=== PATIENT | male | born 1930 | race Caucasian/White ===

== ENCOUNTER 2017-03-06 15:18 | Emergency (ER) | payer MEDICARE, OTHER ==
[~2017-03-06] VITALS: Ht 175.3 cm; Wt 59.0 kg
[~2017-03-06 15:18] MED LIST: CLOBETASOL PROP15 G1 TOP; VITAMIN D3400 UNIT PO; XARELTO10 MG PO
--- NOTE | 2017-03-06 17:01 | Diagnostic Imaging Report ---
PROCEDURE:X-RAY RIGHT WRIST, COMPLETE COMPARISON:None. INDICATIONS:FALL FINDINGS: There are no fractures, dislocations, lytic or blastic lesions. Moderate degenerative changes at the first carpometacarpal joint. The bones are well-mineralized. The soft-tissues are unremarkable. CONCLUSION: No fractures of the right wrist. Dictated by: Anam Paige M.D. on 03/06/2017 at 17:09 Electronically approved by: Anam Paige M.D. on 03/06/2017 at 17:09
[2017-03-06] MEDS ORDERED: TRAMADOL HCL 50 MG TAB PO ONE (20:45)
--- NOTE | 2017-03-06 21:37 | Diagnostic Imaging Report ---
EXAMINATION: Head CT without contrast. HISTORY:Status post fall. COMPARISON:CT brain from 12/16/2016. TECHNIQUE: Multidetector axial images were obtained from the foramen magnum to the vertex without contrast. The images were reconstructed using brain and bone algorithms. Thin section brain images were reformatted into coronal and sagittal planes. Intravenous contrast: None IMAGE QUALITY: Acceptable. FINDINGS: Skull/scalp: No abnormality. Parenchyma: Nonspecific few, scattered supratentorial white matter patchy hypodensity are likely related to small vessel ischemic changes. No acute hemorrhage, mass or acute major vascular territorial infarct. Arteries: Mild atherosclerotic calcification in bilateral carotid siphon. Dural sinuses: No abnormal density suggestive of thrombosis. Ventricles: Mild compensated dilatation due to volume loss. No hydrocephalus. Extra-axial spaces: No abnormal density. Brain volume: Moderate generalized age-related cerebral volume loss. Craniocervical junction: No mass, Chiari malformation, or basilar invagination. Sella: No mass. Paranasal/mastoid sinuses: Imaged portions unremarkable. IMPRESSION: No acute intracranial abnormality. No change since CT brain from 12/16/2016. Mild supratentorial white matter microvascular ischemic changes. Generalized age-related cerebral volume loss. Signed by: Dr. Fina Yarbrough M.D. on 03/06/2017 9:34 PM
--- NOTE | 2017-03-06 21:43 | Diagnostic Imaging Report ---
History:Status post fall. Comparison studies: None Technique: Axial images were obtained through the maxillofacial region. Coronal and sagittal images reconstructed from the axial data. Intravenous contrast: None Findings: Suboptimal evaluation due to dental amalgam artifacts. Soft tissues: Mild soft tissue edema/hematoma in the mid perimandibular region and lower lip/chin region. No associated soft tissue emphysema or radiopaque foreign bodies. Bones: Suboptimal evaluation due to dental amalgam artifact, despite the limitation no acute fracture/dislocation. Orbits: Globes: Intact Extra or intraconal abnormalities: None. Paranasal sinuses: Small polyp/retention cyst in the roof of right maxillary sinus and floor of left maxillary sinus. Incidental finding: Moderate degenerative changes in the anterior atlantodental dental joint with a partially calcified soft tissue prominence posterior to the dens at level C2. IMPRESSION: 1. Mild soft tissue edema/hematoma in the perimandibular region, lower lip/chin. 2. Suboptimal evaluation due to dental amalgam artifact, despite the limitation no acute fracture. Signed by: Dr. Fina Yarbrough M.D. on 03/06/2017 9:39 PM
[2017-03-06 21:52] VITALS: BP 136/71
== END 2017-03-06 21:56 | disposition home or self-care (01) ==
LOC: ER 15:18
DX: S00.83XA Contusion of other part of head, initial encounter (principal)
CPT/HCPCS: 70450; 70486; 99283

== ENCOUNTER 2017-08-02 02:21 | Inpatient (IN) | payer MEDICARE, OTHER ==
[~2017-08-02] VITALS: Ht 175.3 cm; Wt 59.0 kg
--- OUTSIDE RECORDS SUMMARY | 2017-08-02 02:24 | XMS REPORT ---
Author Author [facility] Address Unknown Phone Unavailable Care Team Providers Care [employer] Name Role Phone ERNESTO DURAN Unavailable Unavailable DHARMESH GARCIA Unavailable Unavailable Problems This patient has no known problems. Allergies, Adverse Reactions, Alerts This patient has no known allergies or adverse reactions. Medications This patient has no known medications. Results Test Description Test Time Test Comments Text Results Atomic Results Result Comments CT BRAIN WO [place] [address] Patient Name: ROXANE RICHARDSON MR #: [id number] : 1930 Age/Sex: 86/M Req # : [id number] Adm Physician: Ordered by: MAURICIO BLACKBURN Report #: [id number] Location: ER Room/Bed: Procedure: [id number] CT/CT BRAIN WO Exam Date: 03/06/17 Exam Time: 2052 REPORT STATUS: Signed EXAMINATION: Head CT without contrast. HISTORY:Status post fall. COMPARISON:CT brain from 12/16/2016. TECHNIQUE: Multidetector axial images were obtained from the foramen magnum to the vertex without contrast. The images were reconstructed using brain and bone algorithms. Thin section brain images were reformatted into coronal and sagittal planes. Intravenous contrast: None IMAGE QUALITY: Acceptable. FINDINGS: Skull/scalp: No abnormality. Parenchyma: Nonspecific few, scattered supratentorial white matter patchy hypodensity are likely related to small vessel ischemic changes. No acute hemorrhage, mass or acute major vascular territorial infarct. Arteries: Mild atherosclerotic calcification in bilateral carotid siphon. Dural sinuses: No abnormal density suggestive of thrombosis. Ventricles: Mild compensated dilatation due to volume loss. No hydrocephalus. Extra-axial spaces: No abnormal density. Brain volume: Moderate generalized age-related cerebral volume loss. Craniocervical junction: No mass, Chiari malformation, or basilar invagination. Sella: No mass. Paranasal/ mastoid sinuses: Imaged portions unremarkable. IMPRESSION: No acute intracranial abnormality. No change since CT brain from 12/16/2016. Mild supratentorial white matter microvascular ischemic changes. Generalized age -related cerebral volume loss. Signed by: Dr. Fina Yarbrough M.D. on 2017 9:34 PM Dictated By: FINA YARBROUGH MD 33 Transcribed By: RAFY on 03/06/172133 COPY TO: MAURICIO BLACKBURN CT MAXIO FAC/PARANAS WO [place] [address] Patient Name: ROXANE RICHARDSON MR #: [id number] : 1930 Age/Sex: 86/M Req #: [id number] Adm Physician: Ordered by: MAURICIO BLACKBURN Report #: [id number] Location: ER Room/Bed: _ Procedure: [id number] CT/CT MAXIO FAC/PARANAS WO Exam Date: 03/06/17 Exam Time: 2052 REPORT STATUS: Signed History: Status post fall. Comparison studies: None Technique: Axial images were obtained through the maxillofacial region. Coronal and sagittal images reconstructed from the axial data. Intravenous contrast: None Findings: Suboptimal evaluation due to dental amalgam artifacts. Soft tissues: Mild soft tissue edema/hematoma in the mid perimandibular region and lower lip /chin region. No associated soft tissue emphysema or radiopaque foreign bodies. Bones: Suboptimal evaluation due to dental amalgam artifact, despite the limitation no acute fracture/dislocation. Orbits: Globes: Intact Extra or intraconal abnormalities: None. Paranasal sinuses: Small polyp/retention cyst in the roof of right maxillary sinus and floor of left maxillary sinus. Incidental finding: Moderate degenerative changes in the anterior atlantodental dental joint with a partially calcified soft tissue prominence posterior to the dens at level C2. IMPRESSION: 1. Mild soft tissue edema/hematoma in the perimandibular region, lower lip/chin. 2. Suboptimal evaluation due to dental amalgam artifact, despite the limitation no acute fracture. Signed by: Dr. Fina Yarbrough M.D. on 2017 9:39 PM Dictated By: FINA YARBROUGH MD 38 Transcribed By: RAFY on 03/06/172138 COPY TO: MAURICIO BLACKBURN WRIST COMPLETE RIGHT [place] [address] Patient Name: ROXANE RICHARDSON MR #: [id number] : 1930 Age/Sex: 86/M Req #: [id number] Adm Physician: Ordered by: MAURICIO BLACKBURN Report #: [id number] Location: ER Room/Bed: _ Procedure: [id number] DX/WRIST COMPLETE RIGHT Exam Date: 03/06/17 Exam Time: 1645 REPORT STATUS: Signed PROCEDURE: X -RAY RIGHT WRIST, COMPLETE COMPARISON: None. INDICATIONS: FALL FINDINGS: There are no fractures, dislocations, lytic or blastic lesions. Moderate degenerative changes at the first carpometacarpal joint. The bones are well-mineralized. The soft-tissues are unremarkable. CONCLUSION: No fractures of the right wrist. Dictated by: Claudia Lanier M.D. on 03/06/2017 at 17:09 Electronically approved by: Claudia Lanier M.D. on 03/06/2017 at 17:09 Dictated By: CLAUDIA LANIER MD 08 Transcribed By: VASYL on 03/06/171708 COPY TO: MAURICIO BLACKBURN CT BRAIN WO [place] [address] Patient Name: ROXANE RICHARDSON MR #: [id number] : 1930 Age/Sex: 86/M Req # : [id number] Adm Physician: Ordered by: DHARMESH GARCIA MD Report #: [id number] Location: ER Room/Bed: Procedure: [id number] CT/CT BRAIN WO Exam Date: 12/16/16 Exam Time: 2049 REPORT STATUS: Signed Examination: CT BRAIN WITHOUT CONTRAST History:Dizziness. Comparison studies:None Technique: Axial images were obtained from the skull base to the vertex. Coronal and sagittal images reconstructed from the axial data. Intravenous contrast: None Findings: Scalp: No abnormalities. Bones: No fractures, blastic or lytic lesions. Brain sulci: Mild volume loss for age. Ventricles: No hydrocephalus. Extra-axial space: No abnormalities. Parenchyma: There are mild confluent areas of hypoattenuation in the periventricular and subcortical and pontine white matter, nonspecific. No masses, hemorrhage, or acute or chronic cortical based vascular insults. Sellar/suprasellar region: No abnormalities. Craniocervical junction: Patent foramen magnum. No Chiari one malformation. Incidental findings: Atherosclerotic calcification of the cavernous and supraclinoid internal carotid arteries. Impression: 1. No acute intracranial abnormalities. 2. Mild chronic microvascular ischemic change and volume loss. Signed by: Dr. Melba Garcia M.D. on 12/16/2016 9:24 PM Dictated By: MELBA STEWART MD 23 Transcribed By: RAFY on 12/16/162123 COPY TO: DHARMESH GARCIA MD CHEST SINGLE (PORTABLE) [place] [address] Patient Name: ROXANE RICHARDSON MR #: [id number] : 1930 Age/Sex: 86/M Req #: [id number] Adm Physician: Ordered by: DHARMESH GARCIA MD Report #: [id number] Location: ER Room/Bed: Procedure: [id number] DX/CHEST SINGLE (PORTABLE) Exam Date: 12/16/16 Exam Time: 2054 REPORT STATUS: Signed CHEST SINGLE ( PORTABLE), 12/16/2016 7:43 PM Technique: CHEST SINGLE (PORTABLE) Comparison: 06/07/2016 Clinical history: Dizziness, lung cancer Findings: See Impression Impression: Lung apices are partially excluded. 1. Stable moderately enlarged cardiac silhouette and fullness of the AP window ( adenopathy) 2. Underlying emphysema with decreased size of left upper lobe mass (approximately 4.2 cm, prior 4.9 cm). 3. No new or acute abnormality. Signed by: Dr Mat Rascon MD on 12/16/2016 9:28 PM Dictated By: MAT RASCON MD 27 Transcribed By: RAFY on 12/16/162127 COPY TO: DHARMESH GARCIA MD
--- OUTSIDE RECORDS SUMMARY | 2017-08-02 02:24 | XMS REPORT | Clinical Summary ---
Author Author [facility] Organization [facility] Address Unknown Phone Unavailable Care Team Providers Care Installer Name Role Phone Prem Storey MD PCP Allergies Active Allergy Reactions Severity Noted Date Comments Retapamulin Other (See Comments) 07/23/2016 Unknown Warfarin Other (See Comments) 07/23/2016 Bruising on arms Duloxetine Other (See Comments) 07/23/2016 Unknown Penicillins Rash Low 07/23/2016 Current Medications Prescription Sig. Disp. Refills Start End Date Status Date XARELTO 15 mg tablet Take 15 mg by mouth 6 06/24/19 Active daily. 17 cholecalciferol, vitamin Take 2,000 Units by mouth Active D3, (VITAMIN D3) 2,000 daily. unit capsule capsule PROAIR HFA 90 Inhale 1 puff 2 (two) 08/21/19 Active mcg/actuation inhaler times a day as needed. 17 tiotropium (SPIRIVA) 18 Place 1 puff (1 capsule 30 capsule 0 07/09/19 08/08/19 Active mcg per inhalation total) into inhaler and 18 18 capsule inhale once daily for 30 days. fluticasone-vilanterol Inhale 1 inhalations once 30 each 0 07/09/19 08/08/19 Active (BREO ELLIPTA) 200-25 daily for 30 days. 18 18 mcg/dose blister with device powder for inhalation diltiazem CD (CardIZEM Take 1 capsule (120 mg 30 capsule 0 07/17/19 08/16/19 Active CD) 120 MG 24 hr capsule total) by mouth daily for 18 18 30 days. predniSONE (DELTASONE) 20 Take 1 tablet (20 mg 7 tablet 0 07/08/19 07/17/19 Discontin mg tablet total) by mouth daily for 18 18 ued 7 days. traMADol (ULTRAM) 50 mg Take 1 tablet (50 mg 15 tablet 0 07/08/19 / Discontin tablet total) by mouth every 8 18 18 ued (eight) hours as needed for moderate pain for up to 5 days. diltiazem (CardIZEM) 30 Take 1 tablet (30 mg 90 tablet 0 07/16/19 /15/20 Discontin MG tablet total) by mouth every 8 18 18 ued (eight) hours for 30 days. Active Problems Problem Noted Date Shortness of breath 07/13/2017 Atrial fibrillation 07/04/2017 COPD (chronic obstructive pulmonary disease) 07/04/2017 Lung cancer 07/04/2017 Moderate protein-calorie malnutrition 07/04/2017 Pneumothorax 07/03/2017 Encounters Date Type Specialty Care Team Description 08/01/2017 [facility] Radiology Cy Thomas III, Malignant neoplasm of Encounter upper lobe bronchus, left 07/25/2017 [facility] Radiology Cy Thomas III, Encounter 07/25/2017 [facility] Radiology Cy Thomas III, Canceled ( Scheduling Encounter MD Error) 07/25/2017 Ancillary Radiology Cy Thomas III, Orders 07/25/2017 Ancillary Radiology Cy Thomas III, Orders 07/25/2017 Ancillary Radiology Cy Thomas III, Orders 07/19/2017 Transcribe Access Cy Thomas III, Malignant neoplasm of Orders upper lobe bronchus, left (Primary Dx) 07/13/2017 Emergency General Internal Medicine Floyd Stanley [facility] 07/16/2017 Malignant neoplasm of lung, unspecified laterality, unspecified part of lung; Atrial fibrillation, unspecified type; On continuous oral anticoagulation; Chronic atrial fibrillation 07/07/2017 Patient Quality Ashley Nichole, MARIANN Outreach 07/03/2017 [facility] General Internal Medicine Cy Thomas III, Postprocedural - Encounter pneumothorax (Primary 07/07/2017 Slade Leyva, Dx); 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 07/03/2017 [facility] Radiology Ronan Engel Malignant neoplasm of Encounter III, bronchus of left upper lobe 07/03/2017 [facility] Radiology Cy Thomas III, Malignant neoplasm of Encounter MD bronchus of left upper lobe 07/03/2017 Orders Only General Internal Medicine Tigrevandana SladeDO 06/25/2017 Telephone Access Cy Thomas III, MD 06/21/2017 Transcribe Access Cy Thomas III, Malignant neoplasm of Orders MD bronchus of left upper lobe (Primary Dx) 06/05/2017 Lab Lab Cyndee Gregorio MD 04/03/2017 Hospital Radiology Mark Trotter MD Malignant neoplasm of Encounter overlapping sites of left lung 04/03/2017 Ancillary Access Mark Trotter MD Malignant neoplasm of Orders overlapping sites of left lung 04/02/2017 Telephone Radiology James Zurita 03/26/2017 Transcribe Access Mark Trotter MD Malignant neoplasm of Orders overlapping sites of left lung (Primary Dx) 09/17/2016 Telephone Cardiothoracic Surgery Brittni Savage MA 09/06/2016 [facility] Pulmonology Fabio Goodrich MD Malignant neoplasm of Encounter upper lobe of left lung; SOB (shortness of breath) 09/06/2016 [facility] Radiology Fabio Goodrich MD Malignant neoplasm of Encounter upper lobe of left lung 08/31/2016 Lab Lab Fabio Goodrich MD 08/31/2016 [facility] Cardiothoracic Surgery Fabio Goodrich MD Encounter 08/31/2016 Anesthesia Cardiothoracic Surgery [facility] Event 08/31/2016 Procedure Pass Cardiothoracic Surgery 08/31/2016 Surgery Cardiothoracic Surgery Fabio Goodrich MD FLEXIBLE BRONCHOSCOPY, ENDOBRONCHIAL ULTRASOUND WITH BIOPSY 08/30/2016 Telephone Cardiothoracic Surgery Carey Hernadez NP 08/27/2016 Procedure Pass Radiology 08/27/2016 Telephone Cardiothoracic Surgery Carey Hernadez NP 08/27/2016 Orders Only Cardiothoracic Surgery Carey Hernadez, Malignant neoplasm of HARDBOARD GRINDER upper lobe of left lung (Primary Dx); SOB (shortness of breath) 08/24/2016 Telephone Cardiothoracic Surgery Carey Hernadez NP 08/23/2016 [facility] Radiology Fabio Goodrich MD Encounter 08/23/2016 Office Visit Cardiothoracic Surgery Fabio Goodrich MD Malignant neoplasm of upper lobe of left lung (Primary Dx); Pre-op testing; Chronic atrial fibrillation 08/23/2016 Orders Only Cardiothoracic Surgery Fabio Goodrich MD 08/23/2016 Ancillary Radiology Fabio Goodrich MD Orders 08/23/2016 Orders Only Cardiothoracic Surgery Provider, MD Ivy after 08/01/2016 Family History Medical History Relation Name Comments Prostate cancer Father Relation Name Status Comments Father Social History Tobacco Use Types Packs/Day Years Used Date Former Smoker Cigarettes 0.25 60 Quit: 03/13/2017 Smokeless Tobacco: Never Used Tobacco Cessation: Counseling Given: Yes Comments: 1-2 per day Alcohol Use Drinks/Week oz/Week Comments No Sex Assigned at Date Recorded Not on file Last Filed Vital Signs Vital Sign Reading Time Taken Blood Pressure 133/66 07/16/2017 1:49 PM CDT Pulse 87 07/16/2017 1:49 PM CDT Temperature 36.2 C (97.2 F) 07/16/2017 7:24 AM CDT Respiratory Rate 22 07/16/2017 1:51 PM CDT Oxygen Saturation 94% 07/16/2017 1:49 PM CDT Inhaled Oxygen - - Concentration Weight 57.6 kg (127 lb) 07/15/2017 6:00 AM CDT Height 175.3 cm (5' 9") 07/13/2017 1:43 PM CDT Body Mass Index 18.75 07/15/2017 6:00 AM CDT Plan of Treatment Health Maintenance Due Date Last Done Comments SHINGRIX VACCINE (#1) 10/24/1979 ZOSTER VACCINE 1989 PNEUMOCOCCAL 1994 POLYSACCHARIDE VACCINE AGE 65 AND OVER PNEUMOCOCCAL-13 1994 INFLUENZA VACCINE 10/02/2017 12/03/2015 Procedures Procedure Name Priority Date/Time Associated Diagnosis Comments ECHOCARDIOGRAM WITH Routine 07/15/2017 Results for this AGITATED SALINE (48406) 9:50 AM CDT procedure are in the results section. ANESTHESIA INTUBATION Routine 08/31/2016 Results for this 8:04 AM CDT procedure are in the results section. after 08/01/2016 Results * PET/CT Skull Base To Mid Thigh (08/01/2017 4:20 PM) Specimen Performing Laboratory [address] [address] Narrative PROCEDURE:PET CT SKULL BASE TO MID THIGH INDICATION:Restaging lung cancer, subsequent treatment strategy. TECHNIQUE:Blood glucose measured at the time of injection was 103 mg/dL. The patient was then injected with 12.2 mCi of 18F-FDG, IV.Approximately one hour later, PET images were acquired from the skull base to the mid thighs. Corresponding, low dose, non-contrast CT scanning was performed as part of the attenuation correction process.Automated dose exposure control was utilized. COMPARISON:Outside PET/CT scan dated 05/10/2017. FINDINGS: Head and neck:No suspicious brain uptake.Normal uptake is seen in the visualized sinuses, orbits, nasopharynx, and oropharynx.Uptake by the larynx is normal.No suspicious neck lymph node uptake.Persistent uptake within a right parotid nodule demonstrates an SUV of 7.4.It previously measured 10.6. Chest:No abnormal mediastinal, hilar, or axillary lymph node uptake. Infiltrative changes in the left upper lung are progressed from prior, with diffuse uptake.The maximum SUV on today's study is 5.8.This is similar to prior.Opacity currently measures proximally 6 cm, increased from 4.4 cm.No suspicious uptake in the right lung. Abdomen:Normal uptake is seen in the stomach, spleen, pancreas, liver, and adrenal glands.No abnormal retroperitoneal or mesenteric lymph node uptake. Left renal cyst.No suspicious bowel uptake. Pelvis:Physiologic bowel uptake.No abnormal pelvic sidewall or inguinal lymph node uptake. Review of the osseous structures demonstrates no suspicious uptake. IMPRESSION: 1.Although findings in the left upper lung are progressed from prior, the appearance is suggestive of worsening postradiation pneumonitis. 2.No new uptake is seen to suggest metastatic disease.Stable uptake within a right parotid nodule probably reflects a benign lesion. [facility]-[id number] Procedure Note [facility], Radiology Results - 08/01/2017 5:24 PM CDT PROCEDURE: PET CT SKULL BASE TO MID THIGH INDICATION: Restaging lung cancer, subsequent treatment strategy. TECHNIQUE: Blood glucose measured at the time of injection was 103 mg/dL. The patient was then injected with 12.2 mCi of 18F-FDG, IV. Approximately one hour later, PET images were acquired from the skull base to the mid thighs. Corresponding, low dose, non-contrast CT scanning was performed as part of the attenuation correction process. Automated dose exposure control was utilized. COMPARISON: Outside PET/CT scan dated 05/10/2017. FINDINGS: Head and neck: No suspicious brain uptake. Normal uptake is seen in the visualized sinuses, orbits, nasopharynx, and oropharynx. Uptake by the larynx is normal. No suspicious neck lymph node uptake. Persistent uptake within a right parotid nodule demonstrates an SUV of 7.4. It previously measured 10.6. Chest: No abnormal mediastinal, hilar, or axillary lymph node uptake. Infiltrative changes in the left upper lung are progressed from prior, with diffuse uptake. The maximum SUV on today's study is 5.8. This is similar to prior. Opacity currently measures proximally 6 cm, increased from 4.4 cm. No suspicious uptake in the right lung. Abdomen: Normal uptake is seen in the stomach, spleen, pancreas, liver, and adrenal glands. No abnormal retroperitoneal or mesenteric lymph node uptake. Left renal cyst. No suspicious bowel uptake. Pelvis: Physiologic bowel uptake. No abnormal pelvic sidewall or inguinal lymph node uptake. Review of the osseous structures demonstrates no suspicious uptake. IMPRESSION: 1. Although findings in the left upper lung are progressed from prior, the appearance is suggestive of worsening postradiation pneumonitis. 2. No new uptake is seen to suggest metastatic disease. Stable uptake within a right parotid nodule probably reflects a benign lesion. [facility]-[id number] * CBC hemogram (08/01/2017 4:16 PM) Component Value Ref Range WBC 9.59 4.50 - 11.00 k/uL RBC 3.51 (L) 4.40 - 6.00 m/uL HGB 11.8 (L) 14.0 - 18.0 g/dL HCT 34.7 (L) 41.0 - 51.0 % MCV 98.9 82.0 - 100.0 fL MCH 33.6 27.0 - 34.0 pg MCHC 34.0 31.0 - 37.0 g/dL RDW - SD 59.0 (H) 37.0 - 55.0 fL MPV 9.4 8.8 - 13.2 fL Platelet count 51 (L) 150 - 400 k/uL Nucleated RBC 0.00 /100 WBC Specimen Performing Laboratory Blood [facility] DEPARTMENT OF PATHOLOGY AND GENOMIC MEDICINE [address] [place] [address] * PET/CT Whole Body External Study (07/25/2017 2:16 PM) Only the most recent of 2 results within the time period is included. Specimen Performing Laboratory [facility] [address] [place] [address] Narrative This exam was not acquired at a [facility] facility and has not been interpreted by a [facility] Provider.The exam was imported into our imaging system for comparisons purposes. * Magnesium level (07/16/2017 10:51 AM) Component Value Ref Range Magnesium 1.9 1.6 - 2.4 mg/dL Specimen Performing Laboratory Plasma specimen [facility] DEPARTMENT OF PATHOLOGY AND GENOMIC MEDICINE [address] [place] [address] * Echocardiogram complete w contrast and 3D if needed (07/15/2017 9:50 AM) Component Value Ref Range Velocity Ratio (V1/V2) 0.46 m/s IVS,d 1.24 (A) 0.6 - 1.2 cm EF 64.43 % LA volume 196.0 cm3 LVPWD,d 1.20 cm AoV Mean PG 3.53 mmHg AV LVOT peak gradient 2.04 mmHg MV valve area p 1/2 3.38 cm2 method LVOT Diam,S 2.44 cm LVOT area 4.67 cm2 LVOT Vmax 0.71 m/s LVOT VTI 0.09 m AoV Peak PG 9.45 mmHg MV stenosis pressure 1/2 65.01 ms time LV Vol,s A2C 31.12 mL LV Vol,d A2C 117.29 mL AoV Area, Vmax 2.14 cm2 AoV Area, VTI 2.61 cm2 AoV Vmax 1.54 m/s LA Area d A4C 200 cm2 LV,d 4.72 cm LV,s 3.06 cm LV Vol,d A4C 119.26 ml LV Vol,s A4C 45.94 ml TR Vpeak 3.89 mm/s RA pressure 5.00 mmHg TR pk grad 37.43 mmHg MR peak grad 83.11 mmHg RVSP 48.50 mmHg AR Press Half Time 954.79 ms LV SYS VOL 36.75 ml LV OCONNOR VOL 103.32 ml LA diam s 5.30 cm LV SV Teich 2D 66.57 ml LVOT SI 24.72 ml/m2 AoV Cusp sep 1.81 Aortic Root 3.60 cm AoV Vmn 0.85 AR slope 2.59 Ar Vmax 4.00 IVS s 2D 1.60 LA Ao Ratio Mmode 1.46 IL End Oconnor Grad 9.69 IL End Diat Nii 1.56 AR maxPG 64.13 D E excurs 2.20 E f slope 0.07 E prime lat 0.16 E marvin sept 0.15 PV acc T slope 3.40 IVC diam 24.77 cm PV AT 100.35 msec AoV VTI 0.16 m LV EF,A2C 73.47 % LV EF,A4C 61.48 % LV EF,BP 68.17 % [place],d A2C 8.24 cm [place],d A4C 8.35 cm [place],s A2C 7.55 cm [place],s A4C 7.48 cm LV SV,A2C 86.18 % LV SV,A4C 73.31 % LV Vol,d BP 118.86 ml LV Vol,s BP 37.84 nl MR Vmax 4.68 m/s LVOT Vmn 0.41 Pt Size 175.26 Pt Wt 57.61 LVOT mean grad 0.84 mmHg AR DT 1,546.34 msec AR pk grad 53.53 mmHg LVPW s PLAX 1.78 cm Specimen Performing Laboratory [facility] [address] [place] [address] Narrative Bubble study performed. The left ventricle chamber size is normal. There is mild left ventricular concentric hypertrophy. Left atrium size is severely dilated. Right atrium size moderately dilated. No pericardial effusion The mitral valve appears myxomatous. There is moderate mitral valve regurgitation. The jet in the mitral valve is posterior-directed. Trace aortic regurgitation. Moderate tricuspid valve regurgitation. Unable to assess diastolic filling. Left Ventricular ejection fraction is 55 - 60%. * Estimated GFR (07/14/2017 4:30 AM) Only the most recent of 6 results within the time period is included. Component Value Ref Range GFR Non Af Amer 57 (A) mL/min/1.73 m2 GFR Af Amer 69 mL/min/1.73 m2 Comment: Chronic kidney disease: <60 mL/min/1.73m2 Kidney failure: <15 mL/min/1.73m2 The estimated GFR is calculated from the IDMS-traceable Modification of Diet in Renal Disease Equation. The accuracy of the calculation is poor when the creatinine is normal. Calculated values >90 mL/min/1.73m2 are not reported. This equation has not been validated in children (<18 years), women, the elderly (>70 years), or ethnic groups other than Caucasians and Americans. Specimen Performing Laboratory Plasma specimen [facility] DEPARTMENT OF PATHOLOGY AND [employer] MEDICINE [address] [place] [address] * CBC with platelet and differential (07/14/2017 4:30 AM) Only the most recent of 8 results within the time period is included. Component Value Ref Range WBC 7.39 4.50 - 11.00 k/uL RBC 3.79 (L) 4.40 - 6.00 m/uL HGB 12.7 (L) 14.0 - 18.0 g/dL HCT 37.8 (L) 41.0 - 51.0 % MCV 99.7 82.0 - 100.0 fL MCH 33.5 27.0 - 34.0 pg MCHC 33.6 31.0 - 37.0 g/dL RDW - SD 61.7 (H) 37.0 - 55.0 fL MPV 9.6 8.8 - 13.2 fL Platelet count 140 (L) 150 - 400 k/uL Nucleated RBC 0.00 /100 WBC Neutrophils 70.8 (H) 39.0 - 69.0 % Lymphocytes 13.1 (L) 25.0 - 45.0 % Monocytes 13.0 (H) 0.0 - 10.0 % Eosinophils 1.5 0.0 - 5.0 % Basophils 0.1 0.0 - 1.0 % Specimen Performing Laboratory Blood [facility] DEPARTMENT OF PATHOLOGY AND [employer] [facility] [address] [place] [address] * Basic metabolic panel (07/14/2017 4:30 AM) Only the most recent of 5 results within the time period is included. Component Value Ref Range Sodium 139 135 - 148 mEq/L Potassium 4.2 3.5 - 5.0 mEq/L Chloride 103 98 - 112 mEq/L CO2 25 24 - 31 mEq/L Anion gap 11 7 - 15 mEq/L Comment: Starting from June , anion gap calculation no longer incorporates potassium. Please note the change. BUN 32 (H) 8 - 23 mg/dL Creatinine 1.2 0.7 - 1.2 mg/dL Glucose 111 (H) 65 - 99 mg/dL Calcium 8.9 8.8 - 10.2 mg/dL Specimen Performing Laboratory Plasma specimen [facility] DEPARTMENT OF PATHOLOGY AND GENOMIC MEDICINE [id number] [place] [address] [place] [address] * Lactic acid level, SEPSIS - Now and repeat 2x every 3 hours (07/13/2017 10:55 PM) Only the most recent of 3 results within the time period is included. Component Value Ref Range Lactic acid 2.0 0.5 - 2.2 mmol/L Specimen Performing Laboratory Plasma specimen [facility] DEPARTMENT OF PATHOLOGY AND GENOMIC [facility] [id number] [place] [address] [place] [address] * Troponin (07/13/2017 7:45 PM) Only the most recent of 2 results within the time period is included. Component Value Ref Range Troponin <0.300 0.000 - 0.300 ng/mL Comment: 0.30 - 1.49 ng/ml May indicate increased risk of acute coronary syndrome. >=1.5 ng/ml Consistent with acute myocardial infarction. The diagnostic value of a single normal or non-diagnostic result is questionable. Serial samples at 2-6 hour intervals are required to rule out acute myocardial injury. Specimen Performing Laboratory Plasma specimen [facility] OF PATHOLOGY AND GENOMIC [address] [place] [address] * NM Lung Ventilation Perfusion (07/13/2017 6:26 PM) Specimen Performing Laboratory [facility] [address] [place] [address] Narrative PROCEDURE:NM LUNG VENTILATION PERFUSION INDICATION:Shortness of breath. COMPARISON:Chest xray dated same day, 1413. TECHNIQUE:Planar ventilation images were acquired after the inhalation of 15 mCi of Xe-133 gas. Planar perfusion images were acquired after the IV administration of 5 mCi of Tc-99m MAA. FINDINGS:Ventilation images demonstrate decreased ventilation to the lung periphery and bases. Washout images demonstrate basilar gas trapping. Perfusion images demonstrate decreased perfusion to the lung periphery and bases , matching the ventilation images.No definite mismatched defects. IMPRESSION: 1.Low probability for acute PE. 2.Chronic PE is not excluded based on this study. 3.COPD. [id number] Procedure Note Interface, Radiology Results Incoming - 07/13/2017 6:59 PM CDT PROCEDURE: NM LUNG VENTILATION PERFUSION INDICATION: Shortness of breath. COMPARISON: Chest xray dated same day, 1413. TECHNIQUE: Planar ventilation images were acquired after the inhalation of 15 mCi of Xe-133 gas. Planar perfusion images were acquired after the IV administration of 5 mCi of Tc-99m MAA. FINDINGS: Ventilation images demonstrate decreased ventilation to the lung periphery and bases. Washout images demonstrate basilar gas trapping. Perfusion images demonstrate decreased perfusion to the lung periphery and bases , matching the ventilation images. No definite mismatched defects. IMPRESSION: 1. Low probability for acute PE. 2. Chronic PE is not excluded based on this study. 3. COPD. [id number] * Partial thromboplastin time, activated (07/13/2017 3:30 PM) Only the most recent of 4 results within the time period is included. Component Value Ref Range PTT 29.4 23.0 - 36.0 sec Comment: PTT therapeutic range for unfractionated heparin is 61.0-112.0 seconds which corresponds to Anti-Xa 0.3-0.7 U/ml. Specimen Performing Laboratory Blood [facility] DEPARTMENT OF PATHOLOGY AND [address] [place] [address] * Prothrombin time with INR (07/13/2017 3:30 PM) Only the most recent of 5 results within the time period is included. Component Value Ref Range Prothrombin time 17.9 (H) 12.0 - 15.0 sec INR 1.4 Comment: The International Normalized Ratio (INR) is a therapeutic monitoring tool for patients who are stable on oral anticoagulant therapy. An INR of 2.0-3.0 is suggested for deep vein thrombosis/pulmonary embolism. Specimen Performing Laboratory Blood [facility] DEPARTMENT OF PATHOLOGY AND [address] [place] [address] * B natriuretic peptide (07/13/2017 3:30 PM) Only the most recent of 2 results within the time period is included. Component Value Ref Range BNP 312 (H) 0 - 100 pg/mL Specimen Performing Laboratory Blood [facility] DEPARTMENT OF PATHOLOGY AND [address] [place] [address] * Creatine kinase, total (CPK) (07/13/2017 3:30 PM) Component Value Ref Range Creatine kinase 74 39 - 308 U/L Specimen Performing Laboratory Plasma specimen [facility] DEPARTMENT PATHOLOGY AND [address] [place] [address] * XR Chest 2 Vw (07/13/2017 2:23 PM) Specimen Performing Laboratory [address] [address] Narrative EXAMINATION:XR CHEST 2 VW CLINICAL HISTORY:dx with lung carecent biposy with collapsed lung then dc. now with recurrent sob COMPARISON:July 07, 2017 chest IMPRESSION: Left suprahilar upper lobe mass unchanged. No pneumothorax. Minimal blunting posterior right costophrenic angle Resolution of subcutaneous emphysema left. Lungs remain hyperexpanded in keeping with COPD. Cardiomegaly stable. 2 view chest [facility] [id number] Procedure Note Interface, Radiology Results Incoming - 07/13/2017 2:36 PM CDT EXAMINATION: XR CHEST 2 VW CLINICAL HISTORY: dx with lung ca recent biposy with collapsed lung then dc. now with recurrent sob COMPARISON: July 07, 2017 chest IMPRESSION: Left suprahilar upper lobe mass unchanged. No pneumothorax. Minimal blunting posterior right costophrenic angle Resolution of subcutaneous emphysema left. Lungs remain hyperexpanded in keeping with COPD. Cardiomegaly stable. 2 view chest [facility] [id number] * ECG 12 lead (07/13/2017 1:44 PM) Component Value Ref Range Ventricular rate 97 Atrial rate 80 QRSD interval 94 QT interval 302 QTC interval 383 QRS axis 1 -66 T wave axis 77 EKG impression Atrial fibrillation-Left axis deviation-Incomplete right bundle branch block-Moderate voltage criteria for LVH, may be normal variant-Abnormal ECG-No previous ECGs available- Specimen Performing Laboratory [facility] [address] [place] [address] * XR Chest 1 Vw Portable (07/07/2017 11:32 AM) Only the most recent of 9 results within the time period is included. Specimen Performing Laboratory [facility] [address] [place] [address] Narrative EXAMINATION:XR CHEST 1 VW PORTABLE CLINICAL HISTORY:Pneumothorax IMPRESSION: Follow-up exam demonstrates no pneumothorax. Subcutaneous emphysema again seen in the left chest wall without significant change. Left upper lobe opacity is stable. [facility]-[id number] Procedure Note Interface, Radiology Results Incoming - 07/07/2017 11:37 AM CDT EXAMINATION: XR CHEST 1 VW PORTABLE CLINICAL HISTORY: Pneumothorax IMPRESSION: Follow-up exam demonstrates no pneumothorax. Subcutaneous emphysema again seen in the left chest wall without significant change. Left upper lobe opacity is stable. [facility]-[id number] * Comprehensive metabolic panel (07/03/2017 3:25 PM) Only the most recent of 2 results within the time period is included. Component Value Ref Range Sodium 139 135 - 148 mEq/L Potassium 4.6 3.5 - 5.0 mEq/L Chloride 103 98 - 112 mEq/L CO2 26 24 - 31 mEq/L Anion gap 10 7 - 15 mEq/L Comment: Starting from June , anion gap calculation no longer incorporates potassium. Please note the change. BUN 26 (H) 8 - 23 mg/dL Creatinine 1.1 0.7 - 1.2 mg/dL Glucose 156 (H) 65 - 99 mg/dL Calcium 8.7 (L) 8.8 - 10.2 mg/dL Protein 6.9 6.3 - 8.3 g/dL Comment: [place] 4.6-7.0 g/dL 1 week 4.4-7.6 g/dL 7 months-1year 5.1-7.3 g/dL 1-2 years 5.6-7.5 g/dL >3 years 6.0-8.0 g/dL 18-150 6.3-8.3 g/dL Albumin 4.0 3.5 - 5.0 g/dL A/G ratio 1.4 0.7 - 3.8 Alkaline phosphatase 69 40 - 129 U/L AST 30 10 - 50 U/L ALT 23 5 - 50 U/L Total bilirubin 1.4 (H) 0.0 - 1.2 mg/dL Specimen Performing Laboratory Plasma specimen [facility] DEPARTMENT OF PATHOLOGY AND GENOMIC MEDICINE [address] [place] [address] * XR Chest 1 Vw (07/03/2017 2:30 PM) Only the most recent of 2 results within the time period is included. Specimen Performing Laboratory [facility] [address] [place] [address] Narrative EXAMINATION:XR CHEST 1 VW CLINICAL HISTORY:C34.12 Malignant neoplasm of upper lobeleft bronchus or lung, Post Lung biopsy XR CHEST 1 VWimages are submitted COMPARISON:07/03/2017 FINDINGS: The cardiac silhouette is enlarged. There is been interval placement of a right thoracostomy tube. There has been reexpansion of the left lung. An apical pneumothorax is present. Subcutaneous emphysema seen along the left chest wall. The right lung zone remains clear. IMPRESSION: 1. Interval placement of a left thoracostomy tube. 2. Minimal apical pleural pneumothorax is present. 3. The right lung zone remains clear. 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 There is been interval placement of a right thoracostomy tube. There has been reexpansion of the left lung. An apical pneumothorax is present. Subcutaneous emphysema seen along the left chest wall. The right lung zone remains clear. IMPRESSION: 1. Interval placement of a left thoracostomy tube. 2. Minimal apical pleural pneumothorax is present. 3. The right lung zone remains clear. [id number] * CT Needle Biopsy No Contrast (07/03/2017 1:28 PM) Specimen Performing Laboratory [facility] [address] [place] [address] Narrative EXAMINATION:CT NEEDLE BIOPSY NO CONTRAST REASON FOR EXAMINATION:C34.12 Malignant neoplasm of upper lobeleft bronchus or lung, C34.12 COMPARISON: None TECHNIQUE: CT NEEDLE BIOPSY NO CONTRAST CLINICAL HISTORY: C34.12 Malignant neoplasm of upper lobeleft bronchus or lung, C34.12 CT scans are performed using radiation dose reduction techniques.Technical factors are evaluated and adjusted to ensure appropriate moderation of exposure. Automated dose management technology is applied to adjust radiation exposure while achieving a diagnostic quality image. Chest CT images were obtained and the left upper lobe lung mass was identified. The skin overlying the leftTHORAX was prepped and draped in a sterile manner. The skin was anesthetized with 1% lidocaine. Using intermittent CT guidance, a 20-gauge coaxial core biopsy needle system was introduced percutaneously into the lesion ,and multiple 20-gauge core biopsy samples were obtained from the lesion. The samples were submitted to the department of pathology for initial review. Subsequently, the attending pathologist indicated that sufficient tissue had been obtained to establish a diagnosis. Following completion of the procedure, the needles were removed and hemostasis was obtained. The patient tolerated the procedure well. The patient developed a pneumothorax during the procedure. Postprocedure CT imaging demonstrated a pneumothorax to be present. Chest x-ray was obtained. The patient developed some difficulty breathing. Repeat scanning was performed. The pneumothorax had increased in size. A decision was made to place a thoracostomy tube. The skin overlying the left chest was prepped and draped in sterile manner. The skin was anesthetized 1% lidocaine. Under CT guidance an 18-gauge needle was placed into the chest. A guidewire was then inserted. The needle was removed. An 8 Sudanese dilator was passed over the guidewire. The dilator was then removed. An 8 Sudanese drainage catheter was then placed into the left pleural cavity. The air from the pneumothorax was then aspirated and a left upper lobe was then reexpanded. The chest tube was left in place. The chest tube will be sent to water suction. CONSCIOUS SEDATION: The patient was given conscious sedation with Versed intravenously. Constant nurse observation was performed.Throughout the conscious sedation duration, the patient was continuously monitored by a registered nurse.The physician intraservice [id number]-cu-[id number] time with the patient was 83 minutes. COMPLICATIONS: Pneumothorax IMPRESSION: 1. Status post CT-guided biopsy of a left upper lobe lung nodule. 2. Conscious sedation was given as described above. 3. The patient developed a pneumothorax. 4. A left chest tube was placed under CT guidance. The left lung was reexpanded. 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 Technical factors are evaluated and adjusted to ensure appropriate moderation of exposure. Automated dose management technology is applied to adjust radiation exposure while achieving a diagnostic quality image. Chest CT images were obtained and the left upper lobe lung mass was identified. The skin overlying the left THORAX was prepped and draped in a sterile manner. The skin was anesthetized with 1% lidocaine. Using intermittent CT guidance, a 20-gauge coaxial core biopsy needle system was introduced percutaneously into the lesion ,and multiple 20-gauge core biopsy samples were obtained from the lesion. The samples were submitted to the department of pathology for initial review. Subsequently, the attending pathologist indicated that sufficient tissue had been obtained to establish a diagnosis. Following completion of the procedure, the needles were removed and hemostasis was obtained. The patient tolerated the procedure well. The patient developed a pneumothorax during the procedure. Postprocedure CT imaging demonstrated a pneumothorax to be present. Chest x-ray was obtained. The patient developed some difficulty breathing. Repeat scanning was performed. The pneumothorax had increased in size. A decision was made to place a thoracostomy tube. The skin overlying the left chest was prepped and draped in sterile manner. The skin was anesthetized 1% lidocaine. Under CT guidance an 18-gauge needle was placed into the chest. A guidewire was then inserted. The needle was removed. An 8 Sudanese dilator was passed over the guidewire. The dilator was then removed. An 8 Sudanese drainage catheter was then placed into the left pleural cavity. The air from the pneumothorax was then aspirated and a left upper lobe was then reexpanded. The chest tube was left in place. The chest tube will be sent to water suction. CONSCIOUS SEDATION: The patient was given conscious sedation with Versed intravenously. Constant nurse observation was performed. Throughout the conscious sedation duration, the patient was continuously monitored by a registered nurse. The physician intraservice [id number] time with the patient was 83 minutes. COMPLICATIONS: Pneumothorax IMPRESSION: 1. Status post CT-guided biopsy of a left upper lobe lung nodule. 2. Conscious sedation was given as described above. 3. The patient developed a pneumothorax. 4. A left chest tube was placed under CT guidance. The left lung was reexpanded. 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 Limited ultrasound of the right parotid. A site for needle entry was selected and the skin was prepped and draped in the usual sterile fashion. Maximal sterile barrier technique was implemented. After local administration of 1% buffered lidocaine. Under ultrasound guidance a 25-gauge needle was advanced within the right thyroid nodule. 4 passes performed. The needle was removed and sterile dressing was applied. The specimens were reviewed with pathology and were deemed adequate. Sterile dressing was applied. The patient was discharged to the radiology recovery area for monitoring prior to discharge. EBL: <5 cc. Complications: None. FINDINGS: There is a hypoechoic nodule seen in right parotid measuring 3 cm largest dimension. IMPRESSION: Ultrasound-guided FNA biopsy of right parotid gland nodule. 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 Limited ultrasound of the right parotid. A site for needle entry was selected and the skin was prepped and draped in the usual sterile fashion. Maximal sterile barrier technique was implemented. After local administration of 1% buffered lidocaine. Under ultrasound guidance a 25-gauge needle was advanced within the right thyroid nodule. 4 passes performed. The needle was removed and sterile dressing was applied. The specimens were reviewed with pathology and were deemed adequate. Sterile dressing was applied. The patient was discharged to the radiology recovery area for monitoring prior to discharge. EBL: <5 cc. Complications: None. FINDINGS: There is a hypoechoic nodule seen in right parotid measuring 3 cm largest dimension. IMPRESSION: Ultrasound-guided FNA biopsy of right parotid gland nodule. [facility] [id number] * Cytology (non-gynecological) request (04/03/2017 10:14 AM) Only the most recent of 2 results within the time period is included. Component Value Ref Range Cytology See link below for PDF Lab Report (non-gynecological) report Result status This is Final Report to [id number] Specimen Performing Laboratory [facility] DEPARTMENT OF PATHOLOGY AND GENOMIC MEDICINE [facility] [address] [place] [address] * Flow cytometry evaluation (04/03/2017 9:55 AM) Component Value Ref Range Flow cytometry evaluation See link below for PDF Lab Report Specimen Performing Laboratory [facility] DEPARTMENT OF PATHOLOGY AND GENOMIC MEDICINE [address] [place] [address] * MRI Brain W Wo Contrast (09/06/2016 1:08 PM) Specimen Performing Laboratory [facility] [address] [place] [address] Narrative EXAMINATION: MRI BRAIN W WO CONTRAST CLINICAL HISTORY: C34.12 Malignant neoplasm of upper lobeleft bronchus or lung, lung cancer COMPARISON:None TECHNIQUE: Multiplanar and multisequence MRI imaging of the brain was obtained with and without contrast. FINDINGS: No evidence of acute intracranial hemorhage, mass, mass effect, acute infarct or midline shift. Ventricles and sulci are normal in appearance for patient's age. Mild chronic microvascular ischemic change. No abnormal intracranial enhancement. Small focus of susceptibility in the medial right cerebellum and in the left frontal lobe subcortical white matter. Basal cisterns are clear. Major intracranial flow voids are maintained. Orbits are normal in appearance. Mild mucosal thickening paranasal sinuses. Mastoid air cells are clear. IMPRESSION: 1. No acute intracranial abnormality. 2. Small focus of susceptibility in the right cerebellum and in the left frontal lobe, possible cavernoma is versus sequela of prior microhemorrhage. [id number] Procedure Note [facility], Radiology Results Incoming - 09/06/2016 2:11 PM CDT EXAMINATION: MRI BRAIN W WO CONTRAST CLINICAL HISTORY: C34.12 Malignant neoplasm of upper lobe left bronchus or lung , lung cancer COMPARISON: None TECHNIQUE: Multiplanar and multisequence MRI imaging of the brain was obtained with and without contrast. FINDINGS: No evidence of acute intracranial hemorhage, mass, mass effect, acute infarct or midline shift. Ventricles and sulci are normal in appearance for patient's age. Mild chronic microvascular ischemic change. No abnormal intracranial enhancement. Small focus of susceptibility in the medial right cerebellum and in the left frontal lobe subcortical white matter. Basal cisterns are clear. Major intracranial flow voids are maintained. Orbits are normal in appearance. Mild mucosal thickening paranasal sinuses. Mastoid air cells are clear. IMPRESSION: 1. No acute intracranial abnormality. 2. Small focus of susceptibility in the right cerebellum and in the left frontal lobe, possible cavernoma is versus sequela of prior microhemorrhage. [id number] * ANESTHESIA INTUBATION (08/31/2016 8:04 AM) Narrative Mary CarolHortenciajoseph 08/31/20167:59 AM Airway Date/Time: 08/31/2016 7:45 AM Performed by: HANS ARCE Authorized by: HANS ARCE Location:OR Difficult Airway: No Anesthesiologist:HANS ARCE Resident/COUNTY AGENT:PRISCILA RIVERA Other Anesthesia Staff:MARY MCCALLUM Preoxygenated with 100% O2: Yes C-spine Precautions Maintained Throughout: Yes Mask Ventilation:Easy mask Final Airway Type:Endotracheal airway Final Endotracheal Airway:ETT Cuffed: Yes Technique Used:Direct laryngoscopy Devices/Methods Used in Placement:Intubating stylet Insertion Site:Oral Blade Type:Caputo Laryngoscope Blade/Videolaryngoscope Blade Size:2 ETT Size (mm):8.5 Cuff at minimum occlusion pressure: Yes Measured from:Lips ETT to Lips (cm):22 Placement Verified by: CO2 detection and direct visualization Laryngoscopic view:Grade I - full view of glottis Rapid Sequence Induction (RSI): No Modified RSI: No Number of Attempts at Approach:1 Atraumatic. Lips teeth eyes and tongue are in preoperative status * Type and screen (08/31/2016 6:56 AM) Component Value Ref Range ABO grouping O Rh type POS Antibody screen (gel) NEG Specimen Performing Laboratory Blood [facility] DEPARTMENT OF PATHOLOGY AND GENOMIC MEDICINE [address] [place] [address] * PET/CT Skull Base Mid Thigh External Study (08/15/2016) after 08/01/2016 Insurance Payer Benefit Subscriber ID Type Phone Address Plan / Group MEDICARE MEDICARE xxxxxxxxxxx Medicare [place], [place] PART A AND B [facility] xxxxxxxxxxxx Commercial SUPPLEMENT
[2017-08-02] MEDS ORDERED: MORPHINE SULFATE 2 MG/ML SYR IV STA ×2 (03:01→03:54)
[2017-08-02] MEDS ORDERED: SODIUM CHLORIDE 0.9% 500ML 500 ML IV ONE ×2 (03:15→06:30)
[2017-08-02] MEDS ORDERED: ONDANSETRON HCL 4 MG ORAL DISINTEGRATING TAB PO ONE (03:15)
[2017-08-02 03:28] LABS: BASOPHILS % 0.3 % (0.0-1.0); HEMATOCRIT 31.3 % (38.2-49.6); LYMPHOCYTES # (AUTO) 0.1 (1.0-3.2); LYMPHOCYTES % 2.2 % (18.0-39.1); MEAN CORPUSCULAR HEMOGLOBIN 34.4 pg (28-32); MEAN CORPUSCULAR HGB CONC 35.1 g/dL (31-35); MEAN CORPUSCULAR VOLUME 97.8 fL (81-99); MONOCYTES % 0.3 % (4.4-11.3); NEUTROPHILS # (AUTO) 5.6 (2.1-6.9); NEUTROPHILS % 94.1 % (38.7-80.0); RED CELL DISTRIBUTION WIDTH 16.2 % (11.7-14.4)
[2017-08-02 03:33] LABS: INR 1.23; PROTHROMBIN TIME 14.6 seconds (11.9-14.5)
[2017-08-02 03:34] LABS: PARTIAL THROMBOPLASTIN TIME 25.9 seconds (23.8-35.5); PLATELET COUNT 48 x10e3/uL (140-360)
[2017-08-02 03:40] LABS: ALBUMIN 2.8 g/dL (3.5-5.0); ALBUMIN/GLOBULIN RATIO 0.8 (0.8-2.0); ANION GAP 16.3 mmol/L (8-16); CALCIUM 9.1 mg/dL (8.4-10.2); CREATININE, SERUM 2.98 mg/dL (0.72-1.25); MAGNESIUM 1.5 MG/DL (1.3-2.1); POTASSIUM 4.3 mmol/L (3.5-5.1)
[2017-08-02 03:50] LABS: B-TYPE NATRIURETIC PEPTIDE2 273.3 pg/mL (0-100)
[2017-08-02 04:00] LABS: CREATINE KINASE MB 1.8 ng/mL (0-5.0); THYROID STIMULATING HORMONE 1.368 uIU/mL (0.350-4.940)
--- NOTE | 2017-08-02 05:42 | Diagnostic Imaging Report ---
LOWER LEG LEFT Comparison: None Clinical history: Atrial fibrillation Findings: No fracture or dislocation. Partially imaged medial compartment chondrocalcinosis. Vascular calcifications. Impression: No acute bony abnormality Signed by: Dr Dilia Rascon MD on 08/02/2017 5:39 AM
--- NOTE | 2017-08-02 05:51 | Diagnostic Imaging Report ---
CHEST SINGLE (PORTABLE), 08/02/2017 3:01 AM Technique: CHEST SINGLE (PORTABLE) Comparison: 12/16/2016 Clinical history: Atrial fibrillation Findings: See Impression Impression: 1. Stable cardiomegaly. Persistent fullness of the AP window/left hilum, likely underlying adenopathy. 2. Emphysema. Increased left upper lobe mass/masslike opacity measuring approximately 7.8 cm (prior 4.2 cm). This could be related to worsening tumor spread, associated postobstructive pneumonia, or treatment related changes if there has been interval radiation. 3. No pleural effusion or pneumothorax. Signed by: Dr Dilia Rascon MD on 08/02/2017 5:48 AM
[2017-08-02] MEDS ORDERED: CARDIZEM CD180 MG PO (05:57)
[2017-08-02] MEDS ORDERED: SPIRIVA18 MCG INH (05:58)
[2017-08-02] MEDS ORDERED: PROAIR HFA INH8.5 GM (05:58)
[2017-08-02] MEDS ORDERED: DIGOXIN INJ 0.25 MG/ML 2 ML AMP IV ONE (06:30)
[2017-08-02 07:06] LABS: BILIRUBIN,URINE NEGATIVE (NEGATIVE); CLARITY,URINE SL CLOUDY (CLEAR); COLOR,URINE YELLOW (YELLOW); KETONES,URINE NEGATIVE (NEGATIVE); LEUKOCYTE ESTERASE ,URINE NEGATIVE (NEGATIVE); NITRITE,URINE NEGATIVE (NEGATIVE); PROTEIN,URINE DIPSTICK 1+ (NEGATIVE); URINE UROBILINOGEN 0.2 mg/dL (0.2 - 1)
[2017-08-02 07:11] LABS: BACTERIA,URINE FEW /HPF; EPITHELIAL CELLS,URINE FEW /LPF; RBC,URINE 0-5 /HPF (0-5); WBC,URINE (MAN) 0-5 /HPF (0-5)
[2017-08-02] MEDS ORDERED: MORPHINE SULFATE 2 MG/ML SYR IV PRN (07:15)
--- OUTSIDE RECORDS SUMMARY | 2017-08-02 07:29 | XMS REPORT | Clinical Summary ---
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, left 07/25/2017 [facility] Radiology Cy Thomas III, Encounter 07/25/2017 [facility] Radiology Cy Thomas III, Canceled ( Scheduling Encounter MD Error) 07/25/2017 Ancillary Radiology Cy Thomas III, Orders 07/25/2017 Ancillary Radiology Cy Thomas III, Orders 07/25/2017 Ancillary Radiology Cy Thomas III, Orders 07/19/2017 Transcribe Access Cy Thomas III, Malignant neoplasm of Orders upper lobe bronchus, left (Primary Dx) 07/13/2017 Emergency General Internal Medicine Floyd Stanley MD Shortness of breath - BannerJosé MD (Primary Dx); 07/16/2017 Malignant neoplasm of lung, unspecified laterality, unspecified part of lung; Atrial fibrillation, unspecified type; On continuous oral anticoagulation; Chronic atrial fibrillation 07/07/2017 Patient Quality Ashley Nichole, MARIANN Outreach 07/03/2017 [facility] General Internal Medicine Cy Thomas III, Postprocedural - Encounter pneumothorax (Primary 07/07/2017 Slade Leyva, Dx); 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 07/03/2017 [facility] Radiology Ronan Engel Malignant neoplasm of Encounter III, bronchus of left upper lobe 07/03/2017 [facility] Radiology Cy Thomas III, Malignant neoplasm [...] (Primary Dx) 09/17/2016 Telephone Cardiothoracic Surgery Brittni Savgae MA 09/06/2016 [facility] Pulmonology Fbaio Goodrich MD Malignant neoplasm of Encounter upper lobe of left lung; SOB (shortness of breath) 09/06/2016 [facility] Radiology Fabio Goodrich MD Malignant neoplasm of Encounter upper lobe of left lung 08/31/2016 Lab Lab Fabio Goodrich MD 08/31/2016 [facility] Cardiothoracic Surgery Fabio Goodrich MD Encounter 08/31/2016 Anesthesia Cardiothoracic Surgery [facility] Event 08/31/2016 Procedure Pass Cardiothoracic Surgery 08/31/2016 Surgery Cardiothoracic Surgery Fabio Goodrich MD FLEXIBLE BRONCHOSCOPY, ENDOBRONCHIAL ULTRASOUND WITH BIOPSY 08/30/2016 Telephone Cardiothoracic Surgery Carey Hernadez NP 08/27/2016 Procedure Pass Radiology 08/27/2016 Telephone Cardiothoracic Surgery Carey Hernadez NP 08/27/2016 Orders Only Cardiothoracic Surgery Carey Hernadez, 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 ANESTHESIA INTUBATION Routine 08/31/2016 Results for this 8:04 AM CDT procedure are in the results section. after 08/01/2016 Results * PET/CT Skull Base To Mid Thigh (08/01/2017 4:20 PM) Specimen Performing Laboratory [address] [address] Narrative PROCEDURE:PET CT SKULL BASE TO MID [...] parotid nodule probably reflects a benign lesion. [facility]-[id number] Procedure Note [facility], Radiology Results - 08/01/2017 5:24 PM CDT [...] parotid nodule probably reflects a benign lesion. [facility]-[id number] * CBC hemogram (08/01/2017 4:16 PM) Component [...] 0.00 /100 WBC Specimen Performing Laboratory Blood [facility] DEPARTMENT OF PATHOLOGY AND GENOMIC MEDICINE [address] [place] [address] * PET/CT Whole Body External Study (07/25/2017 2:16 PM) Only the most recent of 2 results within the time period is included. Specimen Performing Laboratory [facility] [address] [place] [address] Narrative This exam was not acquired at a [facility] facility and has not been interpreted by a [facility] Provider.The exam was imported into our imaging system for comparisons purposes. * Magnesium level (07/16/2017 10:51 AM) Component Value Ref Range Magnesium 1.9 1.6 - 2.4 mg/dL Specimen Performing Laboratory Plasma specimen [facility] DEPARTMENT OF PATHOLOGY AND GENOMIC MEDICINE [address] [place] [address] * Echocardiogram complete w contrast and 3D [...] 2D 1.60 LA Ao Ratio Mmode 1.46 NC End Oconnor Grad 9.69 NC End Diat Nii 1.56 AR maxPG 64.13 D E excurs 2.20 E f slope 0.07 E prime lat 0.16 E marvin sept 0.15 PV acc T slope 3.40 IVC diam 24.77 cm PV AT 100.35 msec AoV VTI 0.16 m LV EF,A2C 73.47 % LV EF,A4C 61.48 % LV EF,BP 68.17 % Brandon Greeley,d A2C 8.24 cm Brandon Greeley,d A4C 8.35 cm Brandon Greeley,s A2C 7.55 cm Brandon Greeley,s A4C 7.48 cm LV SV,A2C 86.18 % LV SV,A4C 73.31 % LV Vol,d BP 118.86 ml LV Vol,s BP 37.84 nl MR Vmax 4.68 m/s LVOT Vmn 0.41 Pt Size 175.26 Pt Wt 57.61 LVOT mean grad 0.84 mmHg AR DT 1,546.34 msec AR pk grad 53.53 mmHg LVPW s PLAX 1.78 cm Specimen Performing Laboratory [facility] [address] [place] [address] Narrative Bubble study performed. The left ventricle [...] and Americans. Specimen Performing Laboratory Plasma specimen [facility] DEPARTMENT OF PATHOLOGY AND [employer] MEDICINE [address] [place] [address] * CBC with platelet and differential (07/14/2017 [...] - 1.0 % Specimen Performing Laboratory Blood [facility] DEPARTMENT OF PATHOLOGY AND [employer] [facility] [address] [place] [address] * Basic metabolic panel (07/14/2017 4:30 AM) [...] 10.2 mg/dL Specimen Performing Laboratory Plasma specimen [facility] DEPARTMENT OF PATHOLOGY AND GENOMIC MEDICINE [id number] [place] [address] [place] [address] * Lactic acid level, SEPSIS - Now and repeat 2x every 3 hours (07/13/2017 10:55 PM) Only the most recent of 3 results within the time period is included. Component Value Ref Range Lactic acid 2.0 0.5 - 2.2 mmol/L Specimen Performing Laboratory Plasma specimen [facility] DEPARTMENT OF PATHOLOGY AND GENOMIC [facility] [id number] [place] [address] [place] [address] * Troponin (07/13/2017 7:45 PM) Only the [...] myocardial injury. Specimen Performing Laboratory Plasma specimen [facility] OF PATHOLOGY AND GENOMIC [address] [place] [address] * NM Lung Ventilation Perfusion (07/13/2017 6:26 PM) Specimen Performing Laboratory [facility] [address] [place] [address] Narrative PROCEDURE:NM LUNG VENTILATION PERFUSION INDICATION:Shortness of [...] not excluded based on this study. 3.COPD. [id number] Procedure Note Interface, Radiology Results Incoming - [...] excluded based on this study. 3. COPD. [id number] * Partial thromboplastin time, activated (07/13/2017 3:30 PM) Only the most recent of 4 results within the time period is included. Component Value Ref Range PTT 29.4 23.0 - 36.0 sec Comment: PTT therapeutic range for unfractionated heparin is 61.0-112.0 seconds which corresponds to Anti-Xa 0.3-0.7 U/ml. Specimen Performing Laboratory Blood [facility] DEPARTMENT OF PATHOLOGY AND [address] [place] [address] * Prothrombin time with INR (07/13/2017 3:30 [...] vein thrombosis/pulmonary embolism. Specimen Performing Laboratory Blood [facility] DEPARTMENT OF PATHOLOGY AND [address] [place] [address] * B natriuretic peptide (07/13/2017 3:30 PM) Only the most recent of 2 results within the time period is included. Component Value Ref Range BNP 312 (H) 0 - 100 pg/mL Specimen Performing Laboratory Blood [facility] DEPARTMENT OF PATHOLOGY AND [address] [place] [address] * Creatine kinase, total (CPK) (07/13/2017 3:30 PM) Component Value Ref Range Creatine kinase 74 39 - 308 U/L Specimen Performing Laboratory Plasma specimen [facility] DEPARTMENT PATHOLOGY AND [address] [place] [address] * XR Chest 2 Vw (07/13/2017 2:23 PM) Specimen Performing Laboratory [address] [address] Narrative EXAMINATION:XR CHEST 2 VW CLINICAL HISTORY:dx with lung carecent biposy with collapsed lung then dc. now with recurrent sob COMPARISON:July 07, 2017 chest IMPRESSION: Left suprahilar upper lobe mass unchanged. No pneumothorax. Minimal blunting posterior right costophrenic angle Resolution of subcutaneous emphysema left. Lungs remain hyperexpanded in keeping with COPD. Cardiomegaly stable. 2 view chest [id number] Procedure Note Interface, Radiology Results Incoming - [...] with COPD. Cardiomegaly stable. 2 view chest [id number] * ECG 12 lead (07/13/2017 1:44 PM) Component Value Ref Range Ventricular rate 97 Atrial rate 80 QRSD interval 94 QT interval 302 QTC interval 383 QRS axis 1 -66 T wave axis 77 EKG impression Atrial fibrillation-Left axis deviation-Incomplete right bundle branch block-Moderate voltage criteria for LVH, may be normal variant-Abnormal ECG-No previous ECGs available- Specimen Performing Laboratory [facility] [address] [place] [address] * XR Chest 1 Vw Portable (07/07/2017 11:32 AM) Only the most recent of 9 results within the time period is included. Specimen Performing Laboratory [facility] [address] [place] [address] Narrative EXAMINATION:XR CHEST 1 VW PORTABLE CLINICAL HISTORY:Pneumothorax IMPRESSION: Follow-up exam demonstrates no pneumothorax. Subcutaneous emphysema again seen in the left chest wall without significant change. Left upper lobe opacity is stable. [facility]-[id number] Procedure Note Interface, Radiology Results Incoming - 07/07/2017 11:37 AM CDT EXAMINATION: XR CHEST 1 VW PORTABLE CLINICAL HISTORY: Pneumothorax IMPRESSION: Follow-up exam demonstrates no pneumothorax. Subcutaneous emphysema again seen in the left chest wall without significant change. Left upper lobe opacity is stable. [id number] * Comprehensive metabolic panel (07/03/2017 3:25 PM) [...] Protein 6.9 6.3 - 8.3 g/dL Comment: Annabella 4.6-7.0 g/dL 1 week 4.4-7.6 g/dL 7 [...] 1.2 mg/dL Specimen Performing Laboratory Plasma specimen [facility] DEPARTMENT OF PATHOLOGY AND GENOMIC MEDICINE [address] [place] [address] * XR Chest 1 Vw (07/03/2017 2:30 PM) Only the most recent of 2 results within the time period is included. Specimen Performing Laboratory [facility] [address] [place] [address] Narrative EXAMINATION:XR CHEST 1 VW CLINICAL HISTORY:C34.12 [...] 3. The right lung zone remains clear. [id number] Procedure Note Interface, Radiology Results Incoming - [...] 3. The right lung zone remains clear. [id number] * CT Needle Biopsy No Contrast (07/03/2017 1:28 PM) Specimen Performing Laboratory [facility] [address] [place] [address] Narrative EXAMINATION:CT NEEDLE BIOPSY NO CONTRAST REASON [...] inserted. The needle was removed. An 8 Croatian dilator was passed over the guidewire. The dilator was then removed. An 8 Croatian drainage catheter was then placed into the [...] monitored by a registered nurse.The physician intraservice [id number] time with the patient was 83 minutes. COMPLICATIONS: Pneumothorax IMPRESSION: 1. Status post CT-guided biopsy of a left upper lobe lung nodule. 2. Conscious sedation was given as described above. 3. The patient developed a pneumothorax. 4. A left chest tube was placed under CT guidance. The left lung was reexpanded. [id number] Procedure Note Hm Interface, Radiology Results Incoming [...] inserted. The needle was removed. An 8 Croatian dilator was passed over the guidewire. The dilator was then removed. An 8 Croatian drainage catheter was then placed into the [...] by a registered nurse. The physician intraservice [id number] time with the patient was 83 minutes. COMPLICATIONS: Pneumothorax IMPRESSION: 1. Status post CT-guided biopsy of a left upper lobe lung nodule. 2. Conscious sedation was given as described above. 3. The patient developed a pneumothorax. 4. A left chest tube was placed under CT guidance. The left lung was reexpanded. [id number] * Surgical pathology request (07/03/2017 10:45 AM) Component Value Ref Range Surgical pathology report See link below for PDF Lab Report Result status This is Final Report to [id number] Specimen Performing Laboratory [facility] DEPARTMENT OF PATHOLOGY AND GENOMIC MEDICINE [address] [place] [address] * US Needle Biopsy (04/03/2017 10:30 AM) Specimen Performing Laboratory [facility] [address] [place] [address] Narrative EXAMINATION:US NEEDLE BIOPSY CLINICAL HISTORY:C34.82 Malignant [...] FNA biopsy of right parotid gland nodule. [id number] Procedure Note Hm Interface, Radiology Results Incoming - 04/03/2017 11:02 AM CORROSION PREVENTION METAL SPRAYER EXAMINATION: US NEEDLE BIOPSY CLINICAL HISTORY: C34.82 [...] FNA biopsy of right parotid gland nodule. [id number] * Cytology (non-gynecological) request (04/03/2017 10:14 AM) Only the most recent of 2 results within the time period is included. Component Value Ref Range Cytology See link below for PDF Lab Report (non-gynecological) report Result status This is Final Report to [id number] Specimen Performing Laboratory [facility] DEPARTMENT OF PATHOLOGY AND GENOMIC MEDICINE [facility] [address] [place] [address] * Flow cytometry evaluation (04/03/2017 9:55 AM) Component Value Ref Range Flow cytometry evaluation See link below for PDF Lab Report Specimen Performing Laboratory [facility] DEPARTMENT OF PATHOLOGY AND GENOMIC MEDICINE [address] [place] [address] * MRI Brain W Wo Contrast (09/06/2016 1:08 PM) Specimen Performing [facility] [address] [place] [address] Narrative EXAMINATION: MRI BRAIN W WO CONTRAST [...] cavernoma is versus sequela of prior microhemorrhage. [id number] Procedure Note [facility], Radiology Results Incoming - 09/06/2016 2:11 PM [...] cavernoma is versus sequela of prior microhemorrhage. [id number] * ANESTHESIA INTUBATION (08/31/2016 8:04 AM) Narrative Mary CarolHortenciajoseph 08/31/20167:59 AM Airway Date/Time: 08/31/2016 7:45 AM Performed by: HANS ARCE Authorized by: HANS ARCE Location:OR Difficult Airway: No Anesthesiologist:HANS ARCE Resident/CLINICAL MARKETING MANAGER:PRISCILA RIVERA Other Anesthesia Staff:MARY MCCALLUM Preoxygenated with [...] screen (gel) NEG Specimen Performing Laboratory Blood [facility] DEPARTMENT OF PATHOLOGY AND GENOMIC MEDICINE [address] [place] [address] * PET/CT Skull Base Mid Thigh External Study (08/15/2016) after 08/01/2016 Insurance Payer Benefit Subscriber ID Type Phone Address Plan / Group MEDICARE MEDICARE xxxxxxxxxxx Medicare [place], [place] PART A AND B [facility] MED xxxxxxxxxxxx Commercial SUPPLEMENT
[2017-08-02] MEDS: CEFEPIME HCL 2 GM VIAL IV SCH ×2 (08:24→18:08)
[2017-08-02] MEDS: CLINDAMYCIN PHOS 900MG/ D5W 50 50 ML IV SCH ×3 (08:24→21:17)
[2017-08-02] MEDS: FAMOTIDINE 20 MG/2 ML VIAL IV SCH ×2 (08:24→20:27)
[2017-08-02] MEDS: SODIUM CHLORIDE 0.9% 1000ML 1,000 ML IV SCH ×2 (08:24→20:27)
[2017-08-02] MEDS: AZITHROMYCIN 500MG/NS 250 ML 250 ML IV SCH ×2 (09:33→09:45)
--- NOTE | 2017-08-02 10:18 | Consultation ---
DATE OF CONSULTATION: August 02, 2017 CARDIOLOGY CONSULTATION ATTENDING PHYSICIAN: Dr. Carlin Hardin Mr. Abreu is a complex, 86-year-old man with known lung cancer, who presented to the emergency room today with a complaint of left leg pain. HISTORY OF PRESENT ILLNESS: The patient received his first dose of chemotherapy in the last week or 2 after receiving radiation treatment only for left upper lobe cancer. He did not have any surgery other than a lymph node biopsy. PAST MEDICAL HISTORY: Significant for chronic atrial fibrillation. Atrial fib was diagnosed in 2012 and has been chronic since that time. No previous knowledge of myxomatous degeneration of the mitral valve. Lung cancer was diagnosed in 2016. Previous Cardiolite in August 2012 suggested inferior scar without ischemia. MEDICATIONS: Recent home medications have been: 1. Xarelto 15 mg daily. 2. ProAir mist. 3. Citalopram 10 mg daily. 4. Vitamin D. 5. He apparently has also been given Cardizem CD 120 daily. PERSONAL AND SOCIAL HISTORY: Patient recently stopped smoking. ALLERGIES: PENICILLIN, CYMBALTA, COUMADIN, WARFARIN. PHYSICAL EXAMINATION GENERAL: Exam at this time shows an anxious, uncomfortable man who reports that his left lower leg hurts. VITALS: Blood pressure 120/70, pulse 90 and irregular. HEENT: Unremarkable. NECK: No jugular venous distention. THORAX: Heart sounds S1 and S2 are equal but irregularly regular. There is a faint 1/6 systolic murmur. Lungs have faint crackles in the left upper lobe. PERTINENT LABORATORY STUDIES: White cell count is 5.9, hemoglobin 11.0. BUN 29, creatinine 2.98. Chest x-ray shows left upper lobe infiltrate and a water bottle shaped heart. X-ray of the left lower leg is reported unremarkable. Venous Dopscan of the left leg technical report on the chart does not suggest DVT. ASSESSMENT 1. Probable periosteal pain in the left leg. 2. Lung cancer. 3. Possible pneumonia. 4. Chronic atrial fibrillation. 5. Possible pericardial effusion. PLAN: Agree with analgesics and will monitor his rhythm. It is thought he may have had some wide-complex tachycardia, but this is not seen on current recordings. Will ask for echocardiogram to evaluate the pericardium. Agree with antibiotics. Thank you for asking me to see him in consultation. Job#: [id number] ARIC
[2017-08-02 11:14] LABS: CREATINE KINASE MB 2.2 ng/mL (0-5.0)
[2017-08-02 11:46] VITALS: BP 118/67
[2017-08-02 11:49] VITALS: BP 118/67
[2017-08-02 15:35] VITALS: BP 131/62
[2017-08-02 18:51] LABS: CREATINE KINASE MB 2.2 ng/mL (0-5.0)
[2017-08-02 20:00] VITALS: BP 127/65
[2017-08-02 23:17] VITALS: BP 127/65
[2017-08-03] VITALS (7 sets, daily range): BP systolic 110–135; BP diastolic 68–76
[2017-08-03] MEDS: CLINDAMYCIN PHOS 900MG/ D5W 50 50 ML IV SCH (05:27)
[2017-08-03] MEDS: CEFEPIME HCL 2 GM VIAL IV SCH (05:27)
[2017-08-03] MEDS: SODIUM CHLORIDE 0.9% 1000ML 1,000 ML IV SCH ×3 (06:45→23:15)
[2017-08-03] MEDS: IPRATROPIUM BROMIDE 0.02% 2.5 ML NEB NEB PRN ×2 (07:07→22:35)
[2017-08-03] MEDS: LEVALBUTEROL HCL SOLN NEBU 0.63 MG/3 ML NEB INH PRN ×2 (07:07→22:35)
[2017-08-03] MEDS: FAMOTIDINE 20 MG/2 ML VIAL IV SCH ×2 (08:14→20:02)
[2017-08-03 08:32] LABS: ALBUMIN 2.3 g/dL (3.5-5.0); ALBUMIN/GLOBULIN RATIO 0.7 (0.8-2.0); ANION GAP 14.9 mmol/L (8-16); CALCIUM 8.6 mg/dL (8.4-10.2); CHOL/HDL RATIO 3.3 (3.9-4.7); CREATININE, SERUM 2.46 mg/dL (0.72-1.25); MAGNESIUM 1.3 MG/DL (1.3-2.1); POTASSIUM 3.9 mmol/L (3.5-5.1)
[2017-08-03] MEDS: AZITHROMYCIN 500MG/NS 250 ML 250 ML IV SCH (09:52)
[2017-08-03 10:36] LABS: BASOPHILS % 0.6 % (0.0-1.0); HEMATOCRIT 28.4 % (38.2-49.6); HEMOGLOBIN 9.8 g/dL (14.0-18.0); LYMPHOCYTES # (AUTO) 0.1 (1.0-3.2); LYMPHOCYTES % 7.4 % (18.0-39.1); MEAN CORPUSCULAR HEMOGLOBIN 34.8 pg (28-32); MEAN CORPUSCULAR HGB CONC 34.5 g/dL (31-35); MEAN CORPUSCULAR VOLUME 100.7 fL (81-99); MONOCYTES % 0.6 % (4.4-11.3); NEUTROPHILS # (AUTO) 1.1 (2.1-6.9); NEUTROPHILS % 61.7 % (38.7-80.0); RED BLOOD COUNT 2.82 x10e6/uL (4.3-5.7)
[2017-08-03 10:40] LABS: PLATELET COUNT 24 x10e3/uL (140-360)
[2017-08-03 12:28] LABS: BAND NEUTROPHILS % (MANUAL) 1 %; LYMPHOCYTES % (MANUAL) 6 % (19-48); METAMYELOCYTES % (MANUAL) 1 % (0-0); NEUTROPHILS % (MANUAL) 92 % (40-74)
[2017-08-03 12:29] LABS: PLATELET ESTIMATE MARKEDLY DECREASED; PLATELET MORPHOLOGY COMMENT NORMAL; RBC MORPHOLOGY COMMENT NORMAL; TOXIC GRANULATION MODERATE
[2017-08-03] MEDS ORDERED: LEVOFLOXACIN 500MG/D5W 100ML 100 ML IV SCH (12:30)
[2017-08-04 00:22] VITALS: BP 145/92
[2017-08-04] MEDS: LEVALBUTEROL HCL SOLN NEBU 0.63 MG/3 ML NEB INH PRN ×3 (03:20→13:47)
[2017-08-04] MEDS: SODIUM CHLORIDE 0.9% 1000ML 1,000 ML IV SCH ×2 (03:29→13:32)
[2017-08-04 04:00] VITALS: BP 112/61
[2017-08-04 07:15] VITALS: BP 132/78
[2017-08-04 07:31] VITALS: BP 132/78
[2017-08-04 07:54] LABS: HEMATOCRIT 27.6 % (38.2-49.6); HEMOGLOBIN 9.4 g/dL (14.0-18.0); LYMPHOCYTES # (AUTO) 0.2 (1.0-3.2); LYMPHOCYTES % 21.1 % (18.0-39.1); MEAN CORPUSCULAR HEMOGLOBIN 34.1 pg (28-32); MEAN CORPUSCULAR HGB CONC 34.1 g/dL (31-35); MONOCYTES % 1.4 % (4.4-11.3); NEUTROPHILS # (AUTO) 0.6 (2.1-6.9); NEUTROPHILS % 77.5 % (38.7-80.0); RED BLOOD COUNT 2.76 x10e6/uL (4.3-5.7); RED CELL DISTRIBUTION WIDTH 15.9 % (11.7-14.4)
[2017-08-04 07:58] LABS: PLATELET COUNT 17 x10e3/uL (140-360)
[2017-08-04] MEDS: FAMOTIDINE 20 MG/2 ML VIAL IV SCH (08:03)
[2017-08-04 08:17] LABS: ANION GAP 14.5 mmol/L (8-16); CALCIUM 8.5 mg/dL (8.4-10.2); CREATININE, SERUM 2.21 mg/dL (0.72-1.25); POTASSIUM 3.5 mmol/L (3.5-5.1)
[2017-08-04] MEDS: IPRATROPIUM BROMIDE 0.02% 2.5 ML NEB NEB PRN ×2 (08:39→13:48)
[2017-08-04] MEDS ORDERED: MEROPENEM 500 MG VIAL IV SCH (09:00)
[2017-08-04] MEDS ORDERED: MEROPENEM 500MG 500 MG in SODIUM CHLORIDE 0.9% 50ML 50 ML IV SCH (09:00)
[2017-08-04] MEDS ORDERED: DILTIAZEM HCL 120 MG CAP CD PO SCH (11:45)
[2017-08-04 11:52] VITALS: BP 149/70
--- NOTE | 2017-08-04 13:40 | Consultation ---
DATE OF CONSULTATION: August 03, 2017 ATTENDING PHYSICIAN: Chirag Hardin MD INFECTIOUS DISEASE CONSULTATION Mr. Abreu is an 86-year-old gentleman who seems to be agitated a little bit. He came into the hospital with complaint of left lower leg from the knee down to the point that he cannot even touch the skin. He has a history of left lung cancer and started chemotherapy recently and radiation to the left lung. On routine workup, his blood culture and urine came back with gram-negative. Infectious disease was consulted for evaluation and treatment. It is hard to get a history from the patient, and he does not allow the to explain the history of present illness. Most of the history is obtained from the computer and my conversation with the patient. His left lower extremity pain has improved. It used to be from the knee down when he was admitted, now it is about two-thirds of the tib-fib area down. Overall, he is in no acute distress. PAST MEDICAL HISTORY: As mentioned above, including lung cancer and AFib. He had a Cardiolite back in 2012 which suggested inferior scar with ischemia per cardiology notes. Left lower extremity pain. ALLERGIES: ALLERGIC TO PENICILLIN, COUMADIN, DABIGATRAN ETEXILATE, ALSO DULOXETINE AND RETAPAMULIN. REVIEW OF SYSTEMS: Left lower extremity pain. No nausea, vomiting, fever, chills or shortness of breath. LABORATORY STUDIES: Now he is pancytopenic with white blood cells of 1.75 and platelets of 24. Hemoglobin is 9.89. His creatinine is 2.46, which came down from 2.98. Sodium is 136 with potassium level of 3.9. MICROBIOLOGY: Urine with gram-negative rods with identification and sensitivity pending. Blood cultures: One is negative, and one has gram-negative rods with identification and sensitivity pending. RADIOLOGY STUDIES: Chest x-ray from yesterday shows cardiomegaly which seems to be stable. Also has emphysema. He has increased left upper lobe mass or mass-like opacity measuring approximately 7.8 cm. It could be related to worsening tumor spread associated with obstructive pneumonia or treatment related to interval radiation. Also, no pleural effusion or pneumothorax was seen on the chest x-ray. He had x-ray of the left lower extremity, which showed no acute bony abnormalities. REVIEW OF SYSTEMS: As mentioned above. PHYSICAL EXAMINATION GENERAL: Agitated a little bit. Overall, clinically no acute distress. VITALS: Temperature 96.6, pulse 113, respirations 18, blood pressure 118/69. CV: S1 and S2. CHEST: Equal expansion. Decreased air flow and breath sounds on the left side. No acute distress. He is on O2 nasal cannula. He seems short of breath when he speaks. ABDOMEN: Soft, nontender, no distention. Bowel sounds positive in 4 quadrants. HEENT: Moist. No pallor. No JVD. EXTREMITIES: Left lower extremity very sensitive to touch from the upper two-thirds of the tib-fib area down to toes. He cannot even touch it himself he says. No significant edema. He moves the upper extremities okay. No acute distress. ASSESSMENT AND PLAN: Gram-negative bacteremia with gram-negative in the urine. Will change the antibiotics to meropenem and Levaquin. Allergies reviewed. Aware of pancytopenia. Overall poor prognosis. Case was discussed with Dr. Kaur in detail. Also has left lower extremity pain and left lung cancer per other specialties. I want to thank you for this consult and allowing us to participate in the medical needs of this gentleman. Further management of this patient will be based on daily findings and laboratory and physical examination. Dictated by: ENEDELIA Brooks Job#: [id number]
[2017-08-04] MEDS ORDERED: FUROSEMIDE INJ 10 MG/ML 4 ML VIAL IV NR (14:45)
--- NOTE | 2017-08-04 17:23 | Progress Note ---
DATE: August 04, 2017 INTERNAL MEDICINE PROGRESS NOTE SUBJECTIVE: This is an 86-year-old male who has a past medical history positive for lung cancer with multiple metastases and chronic atrial fibrillation. He came here with COPD exacerbation and pneumonia. Patient has severe neutropenia. Hematology was consulted. Patient refused to see the piercing artist. I explained to the patient that he needs to see a piercing artist so he can prescribe Neupogen to increase the white blood count, but the patient refused. Finally today the patient is in agreement to do that. The patient and family are in agreement to be a DNR/do not intubate due to the very poor prognosis and terminal condition. PHYSICAL EXAMINATION VITAL SIGNS: Blood pressure 149/70. Temperature 96.6. Heart rate 125 per minute. Respiratory rate is 20 per minute. Oxygen saturation is 97%. HEART: Irregularly irregular. Normal S1 and S2 sounds. LUNGS: Decreased breath sounds bilaterally. ABDOMEN: Soft. EXTREMITIES: No evidence of cyanosis, edema or trauma. LABS: On the BMP, sodium 140, potassium 3.5, chloride 111, CO2 18, BUN 75, creatinine 2.21. Glucose 120. On the CBC, white blood count is 0.71, hemoglobin 9.4, hematocrit 27.6, platelet count 17,000. PT 14.6, PTT 25.9, INR 1.23. AST 18, ALT 20, total bilirubin 1.8, alkaline phosphatase 71. FINAL IMPRESSION 1. Severe chronic obstructive pulmonary disease exacerbation. 2. Chronic renal insufficiency. 3. Pancytopenia. 4. Chronic atrial fibrillation. 5. Anemia of chronic disease. 6. Sepsis. PLAN OF TREATMENT 1. Continue albuterol and Atrovent q.4 h. 2. Continue oxygen. 3. I am going to put him on Spiriva 1 inhalation daily. 4. We are going to put him on Solu-Medrol 60 mg IV q.12 h. 5. Continue meropenem 500 mg IV piggyback daily. 6. Morphine 2 mg IV q.3 h. as needed. 7. He is also on Xarelto 15 mg daily because of atrial fibrillation. 8. Continue Cardizem 120 mg daily. 9. We are going to discontinue the IV fluids. 10. We are going to give Lasix 40 mg IV push one time also. 11. We are going to order a stat chest x-ray because of his worsening respiratory status. 12. As I said, I talked with the patient and the family members, who are the son and the at the bedside, and they all agreed with DNR/do not intubate due to the poor prognosis of the patient. 13. We are going to start Neupogen also for the leukopenia. Final recommendation will be as per piercing artist, who the patient had been refusing to see but now he has finally agreed with that. Job#: [id number]
[2017-08-05] MEDS ORDERED: RIVAROXABAN 15 MG TABLET PO SCH (06:00)
[2017-08-05] MEDS ORDERED: FILGRASTIM 300 MCG/ML VIAL SC SCH (09:00)
== END 2017-08-04 20:09 | disposition expired | DRG 871 ==
LOC: ER 02:21 → ERHOLD 07:26 → MED/SURG3 11:12
DX: A41.52 Sepsis due to Pseudomonas (principal); J15.9 Unspecified bacterial pneumonia; C34.12 Malignant neoplasm of upper lobe, left bronchus or lung; N17.9 Acute kidney failure, unspecified; J44.1 Chronic obstructive pulmonary disease with (acute) exacerbation; J44.0 Chronic obstructive pulmonary disease with (acute) lower respiratory infection; D61.818 Other pancytopenia; I31.3 Pericardial effusion (noninflammatory); M79.662 Pain in left lower leg; I48.2 Chronic atrial fibrillation; E86.0 Dehydration; D69.6 Thrombocytopenia, unspecified; I25.10 Atherosclerotic heart disease of native coronary artery without angina pectoris; Z85.46 Personal history of malignant neoplasm of prostate; Z85.89 Personal history of malignant neoplasm of other organs and systems; B96.5 Pseudomonas (aeruginosa) (mallei) (pseudomallei) as the cause of diseases classified elsewhere; Z88.0 Allergy status to penicillin; Z88.8 Allergy status to other drugs, medicaments and biological substances; D63.8 Anemia in other chronic diseases classified elsewhere; Z79.01 Long term (current) use of anticoagulants; Z66 Do not resuscitate; M90.8 Osteopathy in diseases classified elsewhere
CPT/HCPCS: 36415; 51700; 71045; 80048; 80053; 80061; 81001; 82550; 82553; 83605; 83735; 83880; 84443; 84484; 84550; 85025; 85610; 85730; 87040; 87071; 87086; 87186; 87205; 93005; 93306; 93971; 99284; J0456; J0692; J1160; J1956; J2185; J2270; J7030; J7040